=== PATIENT | female | born 1965 | race Caucasian/White ===

== ENCOUNTER → 2018-01-24 | Outpatient (CLI) | payer OTHER ==
[2018-01-27 12:30] LABS: HPV Genotype 16 Not Detected (NOTDET); HPV Genotype 18 Not Detected (NOTDET)
[2018-01-29 11:59] LABS: HPV High Risk Other Not Detected (NOTDET)
== END | disposition home or self-care (01) ==
LOC: OLS 17:36
PROVIDERS: Nurse Practitioner Women's Health
DX: Z12.4 Encounter for screening for malignant neoplasm of cervix (principal)
CPT/HCPCS: 87624; G0123

== ENCOUNTER → 2018-02-17 | Outpatient (CLI) | payer OTHER | LOC: PLD 12:29 → LAB SHORT 12:29 | DX: N85.00 Endometrial hyperplasia, unspecified (principal); N95.0 Postmenopausal bleeding | CPT/HCPCS: 88305 ==

== ENCOUNTER → 2018-03-30 | Outpatient (CLI) | payer OTHER | END | disposition home or self-care (01) | LOC: LAB SHORT 13:03 → OLS 13:03 | DX: N89.8 Other specified noninflammatory disorders of vagina (principal) | CPT/HCPCS: 87070; 87205 ==

== ENCOUNTER → 2022-06-10 | Outpatient (CLI) | payer OTHER | END | disposition home or self-care (01) | LOC: LAB SHORT 12:31 → PLD 12:31 | DX: D48.5 Neoplasm of uncertain behavior of skin (principal) | CPT/HCPCS: 88305 ==

== ENCOUNTER → 2022-08-12 | Outpatient (CLI) | payer OTHER | END | disposition home or self-care (01) | LOC: LAB SHORT 12:01 → LAB 12:01 | DX: D22.5 Melanocytic nevi of trunk (principal) | CPT/HCPCS: 88305 ==

== ENCOUNTER → 2023-03-16 | Outpatient (CLI) | payer OTHER | END | disposition home or self-care (01) | LOC: LAB SHORT 12:30 → PLD 12:30 | DX: D48.5 Neoplasm of uncertain behavior of skin (principal) | CPT/HCPCS: 88305 ==

== ENCOUNTER 2024-08-17 06:47 | Day surgery (SDC) | payer OTHER ==
[2024-08-17] VITALS (14 sets, daily range): BP systolic 98–131; BP diastolic 51–70
[~2024-08-17] VITALS: Ht 170.2 cm; Wt 83.0 kg
[~2024-08-17 06:47] MED LIST: ACET325 PO; ACYC400 PO; ATEN25 PO; BETA.05TCA TOP; CILO100 PO; CLOP75 PO; CeFAZolin Sodium 2,000 MG in NS 100 ML IV SCH; ENBREL25 MG/0.2 SQ; ESTEST.62T PO; ESTRADIOL (TWI1 EAC3 TD; FINA5 PO; FURO40 PO; GABA300 PO; HYDCOR2.5C PR; HYDSUL200 PO; LIDO700A20 TOP; Lactated Ringer's 1,000 ML IV SCH; METF500 PO; NARCAN4 M1 NS; NITR.4SL SL; OXYC5 PO; TAMS.4ER PO; Ventolin5 MG/1 ML INH; XARELTO20 MG PO
[2024-08-17] MEDS ORDERED: PROG100 PO (07:07)
[2024-08-17] MEDS ORDERED: CENTRUM SILVER1 EAC2 PO (07:07)
[2024-08-17] MEDS ORDERED: VITAMIN D350 MC3 PO (07:08)
[2024-08-17] MEDS ORDERED: Bupivacaine 0.5% HCl 5 MG/ML 30MLVIAL ONE (07:29)
--- NOTE | 2024-08-17 07:29 | NUR ---
History, Chart, Medications and Allergies reviewed before start of procedure. Patient confirms NPO status and agrees with scheduled surgery.
[2024-08-17] MEDS ORDERED: Rocuronium Bromide 10 MG/ML 5ML Injection IV ONE (08:04)
[2024-08-17] MEDS ORDERED: propofoL 20 ML IV ONE (08:04)
[2024-08-17] MEDS ORDERED: FentaNYL Citrate 50 MCG/ML 2 ML Injection ONE ×2 (08:04→11:15)
--- NOTE | 2024-08-17 08:05 | NUR ---
PATIENT GAVE PURSE TO TO HOLD FOR HER DURING SURGERY. CLOTHING PLACED IN LABELED PATIENT BELONGING BAG AND PLACED UNDER GURNEY.
[2024-08-17] MEDS ORDERED: Ondansetron HCl 2 MG / ML 2ML Vial ONE (08:47)
[2024-08-17] MEDS ORDERED: Metoclopramide HCl 5MG / ML 2ML Vial ONE (08:47)
[2024-08-17] MEDS ORDERED: Dexamethasone Sod Phos 10 MG/ML 1ML VIAL ONE (08:47)
[2024-08-17] MEDS ORDERED: HYDROmorphone HCl/Pf 1MG SYR ONE ×2 (08:47→09:45)
[2024-08-17] MEDS ORDERED: Atropine Sulfate 0.4 MG/1 ML Vial ONE (09:06)
[2024-08-17] MEDS ORDERED: Ketorolac Tromethamine 30mg Vial ONE (10:30)
[2024-08-17] MEDS ORDERED: Sugammadex Sodium 200 MG/2ML SDV (100 MG/ML) ONE (10:34)
[2024-08-17] MEDS ORDERED: Lactated Ringer's 1,000 ML IV SCH (10:50)
[2024-08-17] MEDS ORDERED: FLU VACC TS2024-25(6MOS UP)/PF 45 MCG/0.5 ML SYRINGE IM SCH (10:50)
[2024-08-17] MEDS ORDERED: Promethazine HCl 12.5 MG Supp PR PRN (10:55)
[2024-08-17] MEDS ORDERED: Ondansetron 4 MG TAB PO PRN (10:55)
[2024-08-17] MEDS ORDERED: HYDROmorphone HCl/Pf 1MG SYR IV PRN (10:55)
[2024-08-17] MEDS ORDERED: Naloxone HCl 0.4MG / ML 1ML Vial IV PRN (10:55)
[2024-08-17] MEDS ORDERED: Promethazine HCl 25 MG Tab PO PRN (10:55)
[2024-08-17] MEDS ORDERED: Simethicone 80 MG Chew PO PRN (10:55)
[2024-08-17] MEDS ORDERED: OxyCODONE 5 mg/Acetamin 325 mg TABLET PO PRN (10:55)
[2024-08-17] MEDS ORDERED: Ondansetron HCl 2 MG / ML 2ML Vial IV PRN (11:00)
[2024-08-17] MEDS ORDERED: Ketorolac Tromethamine 30mg Vial IV PRN (11:10)
--- NOTE | 2024-08-17 12:18 | NUR ---
PT ARRIVED TO THE ROOM FROM PACU AT APPROXIMATELY 1150. PT ALERT, ORIENTED AND PLEASANT UPON ARRIVAL. PT RATES PAIN AT 4/10 AND REPORTS IT IS INCREASING SLIGHTLY. ESQUIVEL CATH REMOVED UPON ARRIVAL. PT OOB AT 1210 AND AMBULATED TO THE BATHROOM. PT TOLERATING CL AT THIS TIME. PO PAIN MEDICATION GIVEN.
[2024-08-17] MEDS ORDERED: CeFAZolin Sodium 2,000 MG in NS 100 ML IV SCH (14:30)
[2024-08-17] MEDS ORDERED: Percocet 5-3251 EACH PO (17:04)
[2024-08-17] MEDS ORDERED: PROMETHAZINE12.5 M1 PO (17:07)
[2024-08-17] MEDS ORDERED: SIME80CH PO (17:08)
--- NOTE | 2024-08-17 19:41 | NUR ---
DISCHARGE PT PROVIDED WITH WRITTEN AND VERBAL DISCHARGE INSTRUCTIONS, PT REPORTED UNDERSTANDING. PT WAS ABLE TO TOLERATE PO, PAIN MANAGED, ABLE TO VOID AND VSS PRIOR TO DISCHARGE. PVR WAS 0ML. DR. SIBLEY ROUNDED ON PT PRIOR TO DISCHARGE. PT AMBULATED OUT INDEPENDENTLY AT APPROXIMATELY 1825. PT REPORTS SHE HAS HER PRESCRIPTIONS AT HOME.
[2024-08-17] MEDS ORDERED: Progesterone, Micronized 100 MG Cap PO SCH (21:00)
[2024-08-17] MEDS ORDERED: Cholecalciferol 1000 Unit Tablet (=25MCG) PO SCH (21:00)
[2024-08-18] MEDS ORDERED: Multivitamins/Minerals 1 Tab PO SCH (09:00)
[2024-08-19] MEDS ORDERED: ESTRADIOL 0.075 MG TOP SCH (09:00)
== END 2024-08-17 18:25 | disposition home or self-care (01) ==
LOC: ORSCMMR 06:47 → ORD 08:00 → SURS 11:31 → ORSCMMR 18:25
PROVIDERS: Obstetrics & Gynecology
PROC: 0UT2FZZ Resection of Bilateral Ovaries, Via Natural or Artificial Opening With Percutaneous Endoscopic Assistance (ICD-10-PCS; principal; 2024-08-17 08:00)
PROC: 0UT9FZZ Resection of Uterus, Via Natural or Artificial Opening With Percutaneous Endoscopic Assistance (ICD-10-PCS; principal; 2024-08-17 08:00)
PROC: 0UT7FZZ Resection of Bilateral Fallopian Tubes, Via Natural or Artificial Opening With Percutaneous Endoscopic Assistance (ICD-10-PCS; principal; 2024-08-17 08:00)
DX: N95.0 Postmenopausal bleeding (principal); N94.6 Dysmenorrhea, unspecified; D25.9 Leiomyoma of uterus, unspecified; N80.329 Endometriosis of the posterior cul-de-sac, unspecified depth; N80.03 Adenomyosis of the uterus; N83.292 Other ovarian cyst, left side; N83.291 Other ovarian cyst, right side; N83.8 Other noninflammatory disorders of ovary, fallopian tube and broad ligament; N94.89 Other specified conditions associated with female genital organs and menstrual cycle; Z79.899 Other long term (current) drug therapy
CPT/HCPCS: 36415; 86850; 86900; 86901; 88307; A9270; J0461; J0690; J1100; J1170; J1171; J1885; J2405; J2704; J2765; J3010; J7120